=== PATIENT | male | born 1980 | race Caucasian/White ===

== ENCOUNTER 2024-10-11 00:42 | Observation (INO) ==
[2024-10-11 01:17] LABS: Hematocrit (blood only) 41.7 % (42.0-52.0); Hemoglobin 14.1 g/dl (14.0-18.0); Immature Granulocytes # (auto) 0.09 K/uL (0.01-0.20); Immature Granulocytes % (auto) 1.0 %; Mean Corpuscular Hemoglobin 29.2 pg (25.0-34.0); Mean Corpuscular Volume 86.3 fL (80.0-100.0); Platelet Count 508 K/uL (130-400); RDW Standard Deviation 44.1 fL (36.4-46.3); Red Blood Count 4.83 M/uL (4.70-6.10); White Blood Count 9.43 K/ul (4.8-10.8)
[2024-10-11 01:24] LABS: Alanine Aminotransferase 35 U/L (7-52); Albumin Globulin Ratio 1.4 (0.9-2); Albumin Level 4.2 gm/dl (3.4-5.0); Alkaline Phosphatase 80 U/L (34-104); Anion Gap 6 (3-11); Bilirubin,Total 1.2 mg/dl (0.2-1.0); Blood Urea Nitrogen 24 mg/dl (6-23); Calcium 8.7 mg/dl (8.6-10.3); Carbon Dioxide 28 mmol/L (21-32); Chloride 99 mmol/L (98-107); Globulin 3.1 gm/dl (2.5-4.0); Glucose 143 mg/dl (70-99(Fasting)); Magnesium 1.9 mg/dl (1.7-2.4); Potassium 4.0 mmol/L (3.5-5.1); Sodium 133 mmol/L (136-145); Total Protein 7.3 gm/dl (6.0-8.3)
[2024-10-11 01:32] LABS: Acetaminophen < 3 ug/ml (10-30); Salicylate < 3.0 mg/dl (3.0-30)
[2024-10-11 01:46] LABS: Appearance Urine Clear (Clear); Bacteria Urine Automated None Seen (None Seen); Cast Urine Automated 0-2 /lpf (0-2); Epithelial Cell Urine Auto 0-2 /hpf (0-2); Glucose Urine UA 3+ (Negative); WBC Urine Automated 0-5 /hpf (0-5)
[2024-10-11 02:04] LABS: Amphetamines+Metham, Urine Neg (Neg); MDMA (Ecstacy), Urine Pos (Neg); Marijuana, Urine Pos (Neg)
--- NOTE | 2024-10-11 02:55 | XRay Report ---
EXAM: XR chest 1V portable CLINICAL HISTORY: Overdose. TECHNIQUE: An X-ray image of the chest is obtained in AP projection. COMPARISON: 06/16/2022 [facility]. FINDINGS: Pulmonary Parenchyma: Bilateral mid and lower lung zone parahilar opacities noted on the left side. Haziness of both costophrenic angles possibly by mild pleural effusion/reaction. Heart and Mediastinum: Increased to cardiothoracic ratio suggestive of cardiomegaly. No mediastinal masses. No hilar or mediastinal lymphadenopathy. Bony Thorax: Old healed fracture of the left third and sixth ribs. Stable. Soft Tissues: Soft tissues overlying the chest wall are unremarkable. IMPRESSION: 1. Bilateral pulmonary parahilar opacities and vascular congestion could be inflammatory/pneumonic and clinical correlation is needed. 2. Haziness of both costophrenic angles possibly by mild pleural effusion/reaction. 3. Increased to cardiothoracic ratio suggestive of cardiomegaly. 4. New findings since last study. Electronically signed by Ramone Maloney 10-11-2024 02:54 AM
--- NOTE | 2024-10-11 03:15 | Emergency Department Note ---
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 (9.4-12.4) fL Immature Gran % (Auto) % Neut % (Auto) % Lymph % (Auto) % [place] % (Auto) % Eos % (Auto) % Baso % (Auto) % Neut # (Auto) (1.40-6.50) K/uL Lymph # (Auto) (1.20-3.40) K/uL [place] # (Auto) (0.11-0.59) K/uL Eos # (Auto) (0.00-0.50) K/uL Baso # (Auto) (0.00-0.20) K/uL Immature Gran # (Auto) (0.01-0.20) K/uL POC pH 7.33 L (7.35-7.45) POC pCO2 55 H (35-46) mmHg POC pO2 38 L (80-95) mmHg POC HCO3 29 H (19-24) silvano/L POC Base Excess 3.0 H (-9-1.8) silvano/L POC ABG O2 Sat 67.0 L (90-95) % POC Sodium 135 (135-144) mmol/L Sodium (136-145) mmol/L POC Potassium 4.0 (3.3-5.0) mmol/L Potassium (3.5-5.1) mmol/L POC Chloride (101-112) mmol/L Chloride (98-107) mmol/L Carbon Dioxide (21-32) mmol/L POC Total CO2 31 (24-31) mmol/L Anion Gap (3-11) POC Anion Gap (16-25) mmol/L POC BUN (7-18) mg/dl BUN (6-23) mg/dl Creatinine (0.6-1.4) mg/dl POC Creatinine (0.6-1.3) mg/dl Est Cr Clr Drug Dosing eGFR BUN/Creatinine Ratio (10-20) Glucose (70-99(Fasting)) mg/dl POC Glucose (other) (70-99) mg/dl Calcium (8.6-10.3) mg/dl POC Ioniz Calcium Jamin (1.12-1.32) mmol/l Magnesium (1.7-2.4) mg/dl Total Bilirubin (0.2-1.0) mg/dl AST (13-39) U/L ALT (7-52) U/L Alkaline Phosphatase (34-104) U/L Troponin I High Sens (0-20) pg/ml Total Protein (6.0-8.3) gm/dl Albumin (3.4-5.0) gm/dl Globulin (2.5-4.0) gm/dl Albumin/Globulin Ratio (0.9-2) Urine Color Dark Yellow Urine Appearance Clear (Clear) Urine pH 5.5 (4.5-7.5) Ur Specific [place] 1.035 H (1.000-1.030) Urine Protein Trace H (Negative) Urine Glucose (UA) 3+ H (Negative) Urine Ketones Trace H (Negative) Urine Blood Negative (Negative) Urine Nitrite Negative (Negative) Urine Bilirubin Negative (Negative) Urine Urobilinogen Negative (Negative) Ur Leukocyte Esterase Negative (Negative) Urine WBC (Auto) 0-5 (0-5) /hpf Urine RBC (Auto) 3-5 H (0-2) /hpf U Hyaline Cast (Auto) 0-2 (0-2) /lpf U Epithel Cells (Auto) 0-2 (0-2) /hpf Urine Bacteria (Auto) None Seen (None Seen) Urine Comment Salicylates (3.0-30) mg/dl Urine Opiates Screen Pos H (Neg) Ur Methadone, Qual Neg (Neg) Urine Fentanyl Screen Neg (Neg) Acetaminophen (10-30) ug/ml Urine Barbiturates Neg (Neg) Ur Phencyclidine (PCP) Neg (Neg) U Amphetamin/Meth Scrn Neg (Neg) MDMA (Ecstasy) Screen Pos H (Neg) U Benzodiazepines Scrn Pos H (Neg) Ur Cocaine Metabolite Neg (Neg) U Marijuana (THC) Screen Pos H (Neg) Ethyl Alcohol mg/dL (<10.0) mg/dl Administered Medications Piperacillin Sod/Tazobactam Sod (Zosyn) 4.5 gm in 100 mls @ 25 mls/hr IV Q8H MELISSA; Protocol Stop: 10/16/24 10:59 Last Admin: 10/11/24 11:16 Dose: 25 mls/hr Documented By: RADHA Insulin Aspart (Insulin Aspart Per Unit Charge) 0 units SC ACHS MELISSA Stop: 11/10/24 08:06 Last Admin: 10/11/24 11:26 Dose: Not Given Documented By: Admin: 10/11/24 09:11 Dose: Not Given Documented By: RADHA Discontinued Medications Ceftriaxone Sodium (Rocephin) 2,000 mg in 50 mls @ 100 mls/hr IV NOW STA Stop: 10/11/24 04:30 Last Admin: 10/11/24 04:52 Dose: Not Given Documented By: GONZALES Vancomycin HCl 2,250 mg/ (Sodium Chloride) 545 mls @ 200 mls/hr IV NOW ONE Stop: 10/11/24 06:44 Last Infusion: 10/11/24 08:35 Dose: Infused Documented By: Admin: 10/11/24 05:43 Dose: 200 mls/hr Documented By: GONZALES Piperacillin Sod/Tazobactam Sod (Zosyn) 4.5 gm in 100 mls @ 200 mls/hr IV NOW STA; Protocol Stop: 10/11/24 05:16 Last Infusion: 10/11/24 05:40 Dose: Infused Documented By: Admin: 10/11/24 05:09 Dose: 200 mls/hr Documented By: GONZALES Lactated Ringer's (Lr) 500 mls @ 125 mls/hr IV .Q4H MELISSA Stop: 10/11/24 12:06 Last Infusion: 10/11/24 13:50 Dose: Infused Documented By: Admin: 10/11/24 09:38 Dose: 125 mls/hr Documented By: RADHA Imaging Data Radiologist's Impression: Chest X-Ray 10/11/24 00:50 EXAM: XR chest 1V portable CLINICAL HISTORY: Overdose. TECHNIQUE: An X-ray image of the chest is obtained in AP projection. COMPARISON: 06/16/2022 [facility]. FINDINGS: Pulmonary Parenchyma: Bilateral mid and lower lung zone parahilar opacities noted on the left side. Haziness of both costophrenic angles possibly by mild pleural effusion/reaction. Heart and Mediastinum: Increased to cardiothoracic ratio suggestive of cardiomegaly. No mediastinal masses. No hilar or mediastinal lymphadenopathy. Bony Thorax: Old healed fracture of the left third and sixth ribs. Stable. Soft Tissues: Soft tissues overlying the chest wall are unremarkable. IMPRESSION: 1. Bilateral pulmonary parahilar opacities and vascular congestion could be inflammatory/pneumonic and clinical correlation is needed. 2. Haziness of both costophrenic angles possibly by mild pleural effusion/reaction. 3. Increased to cardiothoracic ratio suggestive of cardiomegaly. 4. New findings since last study. Electronically signed by Ramone Maloney 10-11-2024 02:54 AM Discharge Plan Visit Data Chief Complaint: Overdose (Accidental) Stated Complaint: OVERDOSE ED Provider: Soumya Snyder Discharge Problem: Hypoxia, Overdose, Aspiration pneumonia of both lower lobes, Asplenia Patient Disposition: Admitted As Inpatient Condition: Critical Discharge Instructions Interventions: ED Discharge Assessment Last Done: 10/11/24 07:51
[2024-10-11] MEDS ORDERED: VANCOMYCIN CONSULT ACTIVE PRN (04:01)
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
[2024-10-11 04:37] LABS: iSTAT Art Bld Gas Base Excess 3.0 meg/L (-9-1.8)
[2024-10-11] MEDS: cefTRIAXone SODIUM 2,000 MG/50 ML BAG IV STA (04:52)
[2024-10-11] MEDS: PIPERACILLIN/TAZOBACTAM 4.5 GM/100 ML BAG IV STA (05:09)
[2024-10-11] MEDS: VANCOMYCIN HCL 2,250 MG in SODIUM CHLORIDE 0.9% 500 ML IV ONE (05:43)
[2024-10-11] MEDS ORDERED: DEXTROSE 50% 50 ML SYRINGE IV PRN (08:07)
[2024-10-11] MEDS ORDERED: DOCUSATE SODIUM 100 MG CAP PO PRN (08:07)
[2024-10-11] MEDS ORDERED: GLUCOSE 40% GEL 15 GM TUBE PO PRN (08:07)
[2024-10-11] MEDS ORDERED: GLUCAGON FOR INJ 1 MG VIAL SQ PRN (08:07)
[2024-10-11] MEDS ORDERED: ACETAMINOPHEN 325 MG TAB PO PRN (08:07)
[2024-10-11] MEDS ORDERED: CARBOHYDRATES FOR HYPOGLYCEMIA PO PRN (08:07)
[2024-10-11] MEDS ORDERED: GLUCOSE 10 TAB/TUBE PO PRN (08:07)
[2024-10-11] MEDS: INSULIN ASPART PER UNIT CHARGE SC SCH (09:11)
[2024-10-11] MEDS: LACTATED RINGER'S 500 ML IV SCH (09:38)
[2024-10-11] MEDS: PIPERACILLIN/TAZOBACTAM 4.5 GM/100 ML BAG IV SCH (11:16)
--- NOTE | 2024-10-11 11:50 | Hospitalist Progress Note ---
Date of Service October 11, 2024 Assessment & Plan (1) Pneumonia of both lower lobes: (2) Acute hypoxic respiratory failure: (3) Overdose: Plan Patient is a 44-year-old male with a known history of drug abuse, asplenia, type II DM, GERD, HTN who presented via EMS after found on the streets by bystanders with suspected drug overdose. He tested positive for opioids, MDMA, benzodiazepines, and THC. Patient was persistently hypoxic in the ED and CXR showed bilateral pulmonary perihilar opacities, vascular congestion, and haziness of both costophrenic angles possibly by mild pleural effusion. He is being admitted for IV antibiotics given history of asplenia. #bilateral lobe pneumonia/Hypoxiasuspect aspiration with recent overdose. CXR showed bilateral pulmonary perihilar opacities, vascular congestion, and haziness of both costophrenic angles suggestive of possible mild pleural effusions. Patient persistently hypoxic in ED, titrated from 6L to current 2L at time of admission. patient with history of asplenia. nonseptic at time of admission, no leukocytosis, VSS, afebrile. Zosyn given history of asplenia, type II DM, and concern for aspiration Vancomycin given at time of admission MRSA swab ordered, continue coverage of positive ABG and blood culture pending Wean oxygen as tolerated Incentive spirometry when patient more responsive #Overdosemost ivyley accidental History of aggressive behaviors. UDS positive for opioids, MDMA, benzodiazepines, and THC. Wean oxygen as tolerated, suspect contributing to hypoxia Patient with dry mucous membranes, UA with elevated specific gravity and keton es LR at 125 mL/hour x 500 mL #T2DM - Most recent A1C 7.0%. - hold Farxiga and semaglutide - SSI with target BSG range 110-180mg/dL, CF 30, defer carb ratio #Mental healthsee overdose above Holding alprazolam, bupropion, venlafaxine until patient more responsive #HTNhold lisinopril HCTZ until patient more responsive VTE ppx: SCD Admission and Anticipated Discharge Date Admission Date: October 11, 2024 Subjective pt is snoring awakens momentarily, is protecting airway Results & Data Results & Data Vital Signs (Past 12 Hours) Vital Signs Temp Pulse Pulse Resp BP BP Pulse Ox 10/11/24 11:37 97.3 F L 88 20 147/96 H 90 10/11/24 08:08 97.5 F L 81 16 124/76 95 10/11/24 08:07 97.5 F L 81 16 124/76 95 10/11/24 08:07 10/11/24 07:30 81 16 119/84 96 10/11/24 07:00 78 17 108/82 97 10/11/24 06:33 79 14 97 10/11/24 06:30 115/81 10/11/24 06:30 115/81 10/11/24 06:15 82 18 98 10/11/24 06:12 80 15 97 10/11/24 06:00 79 21 97 10/11/24 05:54 81 17 97 10/11/24 05:42 81 17 97 10/11/24 05:30 81 15 98 10/11/24 05:21 80 18 98 10/11/24 05:06 82 16 97 10/11/24 05:00 111/78 10/11/24 04:52 82 10/11/24 04:30 121/82 10/11/24 04:30 121/82 10/11/24 04:21 85 18 97 10/11/24 04:12 84 15 98 10/11/24 04:03 85 15 97 10/11/24 04:00 127/92 10/11/24 04:00 127/92 10/11/24 03:54 86 15 97 10/11/24 03:42 85 15 97 10/11/24 03:41 120/87 10/11/24 03:41 86 16 120/87 97 10/11/24 03:31 134/103 H 10/11/24 03:24 133/101 H 10/11/24 03:24 90 26 H 93 10/11/24 03:12 87 16 97 10/11/24 03:03 87 17 97 10/11/24 03:01 123/75 10/11/24 03:01 123/75 10/11/24 03:01 123/75 10/11/24 03:01 123/75 10/11/24 03:01 123/75 10/11/24 02:30 96/79 L 06 02:27 93 H 16 93 10/11/24 02:12 95 H 18 90 10/11/24 02:09 95 H 16 95 10/11/24 02:00 97/76 L 07/06/25 01:51 96 H 17 96 10/11/24 01:42 97 H 18 94 10/11/24 01:30 98 H 18 95 10/11/24 01:30 104/81 10/11/24 01:30 104/81 10/11/24 01:24 99 H 17 94 10/11/24 01:00 127/80 10/11/24 01:00 127/80 10/11/24 00:54 100 H 20 95 10/11/24 00:50 99 H 15 95 10/11/24 00:50 98.2 F 94 H 15 127/80 95 10/11/24 00:50 10/11/24 00:50 98.2 F 98 H 20 135/106 H 96 10/11/24 00:48 102 H 22 93 10/11/24 00:46 135/106 H 10/11/24 00:46 104 H Pulse Ox O2 Del Method O2 Del Method O2 Flow Rate O2 Flow Rate 10/11/24 11:37 Room Air 10/11/24 08:08 Nasal Cannula 3 10/11/24 08:07 Nasal Cannula 3 10/11/24 08:07 95 Nasal Cannula 3 10/11/24 07:30 Nasal Cannula 2 10/11/24 07:00 Nasal Cannula 2 10/11/24 06:33 10/11/24 06:30 10/11/24 06:30 10/11/24 06:15 10/11/24 06:12 10/11/24 06:00 10/11/24 05:54 10/11/24 05:42 10/11/24 05:30 10/11/24 05:21 10/11/24 05:06 10/11/24 05:00 10/11/24 04:52 10/11/24 04:30 10/11/24 04:30 10/11/24 04:21 10/11/24 04:12 10/11/24 04:03 10/11/24 04:00 10/11/24 04:00 10/11/24 03:54 10/11/24 03:42 10/11/24 03:41 10/11/24 03:41 Nasal Cannula 2 10/11/24 03:31 10/11/24 03:24 10/11/24 03:24 10/11/24 03:12 10/11/24 03:03 10/11/24 03:01 10/11/24 03:01 10/11/24 03:01 10/11/24 03:01 10/11/24 03:01 10/11/24 02:30 10/11/24 02:27 10/11/24 02:12 10/11/24 02:09 10/11/24 02:00 10/11/24 01:51 10/11/24 01:42 10/11/24 01:30 10/11/24 01:30 10/11/24 01:30 10/11/24 01:24 10/11/24 01:00 10/11/24 01:00 10/11/24 00:54 10/11/24 00:50 Nasal Cannula 10/11/24 00:50 Nasal Cannula 10/11/24 00:50 Nasal Cannula 6 10/11/24 00:50 Nasal Cannula 10/11/24 00:48 10/11/24 00:46 10/11/24 00:46 PG Care Time/CCT Total # of Minutes Spent Total Time Spent with Patient: Total time spent is greater than 50% in coordination of care (as documented) at patient's floor/unit and/or counseling patient: Coding Level of Care Code None Diagnoses Pneumonia of both lower lobes J18.9 Acute hypoxic respiratory failure J96.01 Overdose T50.901A
--- NOTE | 2024-10-11 15:49 | XRay Report ---
Exam: X-ray of right shoulder with 2 views minimum Reason for exam: Tenderness after fall Previous: 12/03/2023 FINDINGS: Mild DJD acromioclavicular joint. No acute fracture, dislocation or destructive bony process is noted. IMPRESSION: 1. Negative for acute bony trauma. 2. Mild DJD. Electronically signed by Gianni Conklin 10-11-2024 3:49 PM
--- NOTE | 2024-10-11 19:21 | Electrocardiogram Report ---
Test Reason : Blood Pressure : */* mmHG Vent. Rate : 99 BPM Atrial Rate : 99 BPM P-R Int : 160 ms QRS Dur : 100 ms QT Int : 352 ms P-R-T Axes : 48 56 15 degrees QTcB Int : 451 ms Normal sinus rhythm Possible Left atrial enlargement Borderline ECG When compared with ECG of 16-Jun-2022 11:14, No significant change was found Confirmed by Rodríguez Vyas ([id number]) on 10/11/2024 7:21:24 PM Referred By: REFERRED SELF Confirmed By: Rodríguez Vyas
[2024-10-12] MEDS: ONDANSETRON INJ 2 MG/ML 2 ML VIAL IV PRN (00:23)
[2024-10-12 04:33] VITALS: RESP 22
[2024-10-12 07:20] LABS: Hematocrit (blood only) 40.4 % (42.0-52.0); Hemoglobin 13.0 g/dl (14.0-18.0); Immature Granulocytes # (auto) 0.07 K/uL (0.01-0.20); Immature Granulocytes % (auto) 0.6 %; Mean Corpuscular Hemoglobin 28.6 pg (25.0-34.0); Mean Corpuscular Volume 89.0 fL (80.0-100.0); Platelet Count 497 K/uL (130-400); RDW Standard Deviation 46.0 fL (36.4-46.3); Red Blood Count 4.54 M/uL (4.70-6.10); White Blood Count 11.09 K/ul (4.8-10.8)
[2024-10-12 07:25] VITALS: TEMP 98.1
[2024-10-12 07:44] LABS: Alanine Aminotransferase 24.0 U/L (7-52); Albumin Globulin Ratio 1.3 (0.9-2); Albumin Level 3.6 gm/dl (3.4-5.0); Alkaline Phosphatase 67.0 U/L (34-104); Anion Gap 3.0 (3-11); Bilirubin,Total 1.0 mg/dl (0.2-1.0); Blood Urea Nitrogen 20.0 mg/dl (6-23); Calcium 8.2 mg/dl (8.6-10.3); Carbon Dioxide 30.0 mmol/L (21-32); Chloride 104.0 mmol/L (98-107); Creatinine Clr Calc Pharmacy 156.9 ml/min; Globulin 2.8 gm/dl (2.5-4.0); Glucose 141.0 mg/dl (70-99(Fasting)); Magnesium 2.0 mg/dl (1.7-2.4); Potassium 3.8 mmol/L (3.5-5.1); Sodium 137.0 mmol/L (136-145); Total Protein 6.4 gm/dl (6.0-8.3)
[2024-10-12] MEDS: LISINOPRIL/HCTZ 20/25MG 1 TAB PO ONE (10:23)
[2024-10-12 10:39] VITALS: BP 108/64; PULSE 81; O2SAT 96
--- NOTE | 2024-10-12 15:12 | Discharge Summary ---
Discharge Summary Date of Service October 12, 2024 Principal Dx & Hospital Course #1 = Principal Diagnosis (1) Pneumonia of both lower lobes: (2) Acute hypoxic respiratory failure: (3) Overdose: Plan Patient is a 44-year-old male with a known history of drug abuse, asplenia, type II DM, GERD, HTN who presented via EMS after found on the streets by bystanders with suspected drug overdose. He tested positive for opioids, MDMA, bobbi zodiazepines, and THC. Patient was persistently hypoxic in the ED and CXR showed bilateral pulmonary perihilar opacities, vascular congestion, and haziness of both costophrenic angles possibly by mild pleural effusion. He is being admitted for IV antibiotics given history of asplenia. #bilateral lobe pneumonia/Hypoxiasuspect aspiration with recent overdose. CXR showed bilateral pulmonary perihilar opacities, vascular congestion, and haziness of both costophrenic angles suggestive of possible mild pleural effusions. Patient persistently hypoxic in ED, titrated from 6L to current 2L at time of admission. patient with history of asplenia. nonseptic at time of admission, no leukocytosis, VSS, afebrile. Zosyn given history of asplenia, type II DM, and concern for aspiration, augmentin at discharge Vancomycin given at time of admission MRSA swab ordered, negative nasal swab, stopped #Overdosemost likley accidental History of aggressive behaviors. UDS positive for opioids, MDMA, benzodiazepines, and THC. #T2DM - Most recent A1C 7.0%. Farxiga and semaglutide #Mental health alprazolam, bupropion, venlafaxine until patient more responsive #HTNhold lisinopril HCTZ until patient more responsive Notes For Next Care Provider pt may need his substance and Rx issues adressed consider CXR for resolution of pneumonia Admission HPI Per Admitting Provider Patient is a 44-year-old male with a known history of drug abuse, asplenia, type II DM, GERD, HTN who presented via EMS after found on the streets by bystanders with suspected drug overdose. He tested positive for opioids, MDMA, benzodiazepines, and THC. Patient was persistently hypoxic in the ED and CXR showed bilateral pulmonary perihilar opacities, vascular congestion, and haziness of both costophrenic angles possibly by mild pleural effusion. He is being admitted for IV antibiotics given history of asplenia For suspected aspiration pneumonia. Patient seen at bedside. Pupils dilated however equal and reactive to light. Sleeping but responds to verbal stimuli. Discharge Exam some basliar rhonchi r>L Discharge Plan Discharge Items Patient Disposition: Home - Self-Care Reason For Visit: PNEUMONIA,HYPOXIA,OD Discharge Diagnosis: pneumonia unresponsive episode shoulder pain Condition on Discharge: Critical Activity: Resume your previous activity Non-emergency contact: Primary Care Provider Call non-emergency contact if: your symptoms worsen Follow-up/Referrals: Aida Tuttle MD [Primary Care Provider] - 10/15/24 2:00 pm (Hospital follow up on , October 15 at 2 pm.) Diet: Regular Addtl Attending Provider Instructions: Please complete your antibiotics for your pneumonia please see orthopedics for your shoulder pain consider getting some counselling for your substance use, you may call the [facility] help line, , or have a referral thru your primary care doctor Pending Studies at Discharge: No Stand-Alone Forms: My [facility], Smoking Cessation Medications and DC Order Prescriptions: Continued (DME) pen needle, diabetic [Pen Needle] 32 gauge x 5/32" needle See Rx Instructions .Route Qty: 100 5RF Rx Instructions: Use with Victoza Pen Daily (DME) Contour Next Test Strips Strip See Rx Instructions .Route Qty: 100 1RF Rx Instructions: As directed-PT TESTING BS TWICE A DAY (DME) lancets [Microlet Lancet] Misc See Rx Instructions .Route Qty: 100 5RF Rx Instructions: As directed (DME) blood-glucose meter [Contour Next Gen Meter] Misc See Rx Instructions .Route Qty: 1 0RF Rx Instructions: test twice a day promethazine 25 mg tablet 25 mg PO TID PRN (Reason: nausea and vomiting) Qty: 30 2RF oxycodone 10 mg tablet,oral only,ext.rel.12 hr 10 mg PO BID Qty: 60 0RF Hold Instructions: pharmacy back order bupropion HCl 300 mg tablet extended release 24 hr 300 mg PO QAM Qty: 90 1RF ezetimibe [Zetia] 10 mg tablet 10 mg PO DAILY Qty: 30 5RF venlafaxine 150 mg tablet extended release 24hr 150 mg PO DAILY Qty: 30 2RF Farxiga 10 mg tablet 10 mg PO DAILY Qty: 30 5RF Ozempic 0.25 mg or 0.5 mg (2 mg/3 mL) pen injector See Rx Instructions subcut .COMPLEX Qty: 3 8RF Rx Instructions: 0.25mg SC WEEKLY for 4 weeks, then increase to 0.5mg SC WEEKLY. subcutaneously; lisinopril-hydrochlorothiazide 20-25 mg tablet 1 tab PO DAILY Qty: 30 5RF omeprazole 40 mg capsule,delayed release(DR/EC) 40 mg PO DAILY Qty: 90 3RF alprazolam 2 mg tablet 2 mg PO BID Qty: 60 0RF oxycodone 10 mg tablet 10 mg PO BID PRN (Reason: pain) Qty: 60 0RF Medical Mar[place]ana PO celecoxib [Celebrex] 100 mg capsule 100 mg PO BID Qty: 60 0RF Rx Instructions: take 1 tab twice daily for 2 weeks, then as needed after that naloxone [Narcan] 4 mg/actuation spray,non-aerosol 4 mg intranasal Q2M PRN (Reason: opioid overdose) Qty: 2 6RF Rx Instructions: spray 1 dose into ONE nostril; alternate nostrils w each dose until help arrives amoxicillin-pot clavulanate 875-125 mg tablet 1 tab PO Q12H Qty: 20 0RF Discharge Orders: Discharge Order (Routine); Ordered 10/12/24 Ordered By: Brant Harris/Other Patient Handouts: Substance Abuse Rehab Program, Treating Drug Abuse and Addiction, Alcohol Drugs Advice as Parent, ED DRUG [id number] RX Admission Data Admit Date/Time: 10/11/24 04:59 Attending Provider: Brant Varma Admit Provider: Troy Amaro Primary Care Provider: Aida Tuttle Other Providers: Troy Amaro Other Interventions: Discharge Summary Assessment (RN) Last Done: 10/12/24 10:38 Hospital Stay Data Consultations 10/11/24 04:26 ED Decision to Admit Stat Pending Results Patient Have Any Pending Studies at Discharge: No Discharge Instructions Given to Patient (Per Discharging Provider) Please complete your antibiotics for your pneumonia please see orthopedics for your shoulder pain consider getting some counselling for your substance use, you may call the [facility] help line, , or have a referral thru your primary care doctor Total Time Total Time Spent Total Time Spent (In Minutes): It required greater than 30 minutes to prepare this patient for discharge. Coding Level of Care Code 37500 INP/OBS DISCH >30 MIN Diagnoses Pneumonia of both lower lobes J18.9 Acute hypoxic respiratory failure J96.01 Overdose T50.907E
--- NOTE | 2024-10-12 18:31 | Electrocardiogram Report ---
Test Reason : Blood Pressure : */* mmHG Vent. Rate : 85 BPM Atrial Rate : 85 BPM P-R Int : 150 ms QRS Dur : 84 ms QT Int : 368 ms P-R-T Axes : 45 55 28 degrees QTcB Int : 437 ms Normal sinus rhythm Normal ECG When compared with ECG of 11-Oct-2024 01:02, No significant change was found Confirmed by Radames Calhoun ([id number]) on 10/12/2024 6:31:38 PM Referred By: REFERRED SELF Confirmed By: Radames Calhoun
[2024-10-15 12:59] LABS: 7-Aminoclonaz, Confirm NEGATIVE ng/mL (<25); Hydro-Alp Ur, GC/MS 1400 ng/mL (<25); Hydrocodone Urine NEGATIVE ng/mL (<50); Hydromor Urine NEGATIVE ng/mL (<50); Hydroxyethylflurazepam, Conf NEGATIVE ng/mL (<50); Hydroxymidazolam Ur, GC/MS NEGATIVE ng/mL (<50); Lorazepam, Ur GC/MS NEGATIVE ng/mL (<50); MDA negative; MDEA negative; MDMA (Ecstasy) Urine, Confirm negative; Marijuana Quant, GCMS Urine 260 ng/mL (<5); Nordiazepam, Confirm NEGATIVE ng/mL (<50); Noroxycodone Urine >10000 ng/mL (<50); Oxazepam Ur, GC/MS NEGATIVE ng/mL (<50); Oxymorph Urine 553 ng/mL (<50); Temazepam, Confirm NEGATIVE ng/mL (<50)
== END 2024-10-12 11:57 | disposition home or self-care (01) | DRG 917 ==
LOC: SUATTDRO → ED 00:42 → 2E 04:59 → SUATTDRO 04:59 → INTOOBSV 04:59 → 2E 07:51